=== PATIENT | female | born 1975 | race Caucasian/White ===

== ENCOUNTER 2017-03-17 01:30 | Emergency (ER) | payer MEDICAID ==
[~2017-03-17] VITALS: Ht 180.3 cm; Wt 85.6 kg
[~2017-03-17 01:30] MED LIST: OMEP10CA4 PO
[2017-03-17] MEDS ORDERED: THIAMINE 100MG TABLET PO ONE (02:00)
[2017-03-17] MEDS ORDERED: THIAMINE 100MG TABLET ONE (02:10)
[2017-03-17 02:25] LABS: HEMATOCRIT 47.2 % (34.6-47.8); HEMOGLOBIN 15.6 g/dL (11.7-16.4); WHITE BLOOD COUNT 7.7 x10^3/uL (3.4-10)
[2017-03-17 02:32] LABS: BLOOD UREA NITROGEN 10 mg/dL (7-18)
[2017-03-17 03:04] VITALS: BP 142/97
== END 2017-03-17 03:32 | disposition home or self-care (01) ==
LOC: ED 03:30
DX: Z00.8 Encounter for other general examination (principal); F10.129 Alcohol abuse with intoxication, unspecified; I10 Essential (primary) hypertension
CPT/HCPCS: 36415; 80048; 82040; 85025; 93005; 99285